=== PATIENT | female | born 1930 | race Caucasian/White ===

== ENCOUNTER 2017-02-22 18:34 | Emergency (ER) | payer MEDICARE, BC ==
[2017-02-22] MEDS ORDERED: Insulin Regular, Human 100 Units/ML 3 ML Vial SUBCUT STA (19:36)
[2017-02-22] MEDS ORDERED: Sodium Chloride 0.9% 1,000 ML IV ONE ×2 (19:37→21:08)
--- NOTE | 2017-02-22 19:41 | EDM.PDOC ---
ED HPI GENERAL MEDICAL PROBLEM - General Chief Complaint: Back Pain or Injury Stated Complaint: BACK PAINS Time Seen by Provider: 02/22/17 19:08 Source of Information: Reports: Family (Son & daughter), RN Notes Reviewed History Limitations: Reports: Altered Mental Status - History of Present Illness INITIAL COMMENTS - FREE TEXT/NARRATIVE: The patient resides alone in a house on the property of her son. He states that he visits her every night to instill her glaucoma eyedrops. Last night (2016) everything was normal, however, when he came by [facility], he found the patient sitting in her kitchen chair. He believes that she had been sitting there all day. She had urinated on herself. She was awake, but minimally responsive. He found to chocolate muffins on the table that he believes she had been chewing on. The patient has chronic low back pain, and it was the son's impression that her pain had prevented her from getting up all day. The patient' s son and daughter brought her to the ED. Upon arrival to the ED, an Accu-Chek was checked, reading >400. The patient is awake, but minimally responsive, and when asked a question, responds with nonsensical wording. No prior similar symptoms. No recent illnesses. - Related Data Allergies Allergy/AdvReac Type Severity Reaction Status Date / Time gatifloxacin [From Tequin] Allergy Cannot Verified 02/22/17 18:40 Remember ketorolac Allergy Cannot Verified 02/22/17 18:40 Remember Penicillins Allergy Cannot Verified 02/22/17 18:40 Remember Home Meds: Home Meds Ascorbate Calcium [Vitamin C] 1 tab PO DAILY 02/22/17 [History] Bimatoprost [Lumigan 0.03% Ophth Soln] 1 drop EYEBOTH BEDTIME 02/22/17 [History] Calcium Carbonate/Vitamin D3 [Calcium 600 + Vit D 400 Softgl] 1 tab PO DAILY [History] Cholecalciferol (Vitamin D3) [Vitamin D3] 1 tab PO DAILY 02/22/17 [History] Ferrous Sulfate [Iron] 1 tab PO DAILY 02/22/17 [History] Hydrochlorothiazide 1 tab PO DAILY 02/22/17 [History] Levothyroxine 1 tab PO DAILY 02/22/17 [History] Linagliptin [Tradjenta] 1 tab PO DAILY 02/22/17 [History] Losartan [Cozaar] 1 tab PO DAILY 02/22/17 [History] Metoprolol Tartrate 1 tab PO BID 02/22/17 [History] Multivit,Calc,Mins/Iron/Folic [Therapeutic-M Tablet] 1 tab PO DAILY 02/22/17 [ History] [place]-3/DHA/Epa/Fish Oil [[place] 3 500 Softgel] 1 tab PO DAILY 02/22/17 [History] Omeprazole 1 tab PO BID 02/22/17 [History] Simvastatin [Zocor] 1 tab PO BEDTIME 02/22/17 [History] Vit A,C & E/Lutein/Minerals [Healthy Eyes] 1 tab PO DAILY 02/22/17 [History] Vitamin E 1 tab PO DAILY 02/22/17 [History] metFORMIN [Glucophage XR] 1 tab PO BID 02/22/17 [History] Past Medical History HEENT History: Reports: Glaucoma Cardiovascular History: Reports: High Cholesterol, Hypertension Gastrointestinal History: Reports: GERD, PUD Genitourinary History: Reports: Renal Calculus, Urinary Incontinence Musculoskeletal History: Reports: Back Pain, Chronic, Osteoarthritis, Osteoporosis Endocrine/Metabolic History: Reports: Diabetes, Type II, Hypothyroidism - Past Surgical History HEENT Surgical History: Reports: Cataract Surgery GI Surgical History: Reports: Other (See Below) (Unknown abdominal surgery, based on well-healed long transverse upper abdominal scar) Neurological Surgical History: Reports: Lumbar Spine (fusion) Musculoskeletal Surgical History: Reports: Hip Replacement (bilateral) Social & Family History - Tobacco Use Smoking Status *Q: Never Smoker - Alcohol Use Alcohol Use History: Yes Alcohol Use Frequency: Daily (1 drink nightly) - Recreational Drug Use Recreational Drug Use: No - Living Situation & Occupation Living situation: Reports: , Alone (on son's property) Occupation: Retired ED ROS GENERAL - Review of Systems Review Of Systems: See Below Constitutional: Reports: No Symptoms HEENT: Reports: No Symptoms Respiratory: Reports: No Symptoms Cardiovascular: Reports: No Symptoms Endocrine: Reports: No Symptoms GI/Abdominal: Reports: No Symptoms : Reports: No Symptoms Musculoskeletal: Reports: No Symptoms Skin: Reports: No Symptoms Neurological: Reports: No Symptoms Psychiatric: Reports: No Symptoms Hematologic/Lymphatic: Reports: No Symptoms Immunologic: Reports: No Symptoms ED EXAM GENERAL NO PERIP PULSE - Physical Exam Exam: See Below Exam Limited By: Other (The patient does not follow commands) General Appearance: Alert, WD/WN, No Apparent Distress Eye Exam: Bilateral Eye: Normal Inspection Ears: Normal External Exam, Hearing Grossly Normal Nose: Normal Inspection, No Blood Throat/Mouth: Normal Inspection, Normal Lips, Normal Voice, No Airway Compromise , Other (Dry oral mucosa) Head: Atraumatic, Normocephalic Neck: Normal Inspection, Full Range of Motion Respiratory/Chest: No Respiratory Distress, Lungs Clear, Normal Breath Sounds, No Accessory Muscle Use Cardiovascular: Normal Peripheral Pulses, Regular Rate, Rhythm, No Gallop, No JVD, No Murmur, No Rub GI/Abdominal: Normal Bowel Sounds, Soft, No Organomegaly, No Distention, No Abnormal Bruit, No Mass, Tender (The patient moans with palpation of her entire abdomen), Other (Long, well-healed transverse upper abdominal scar) (Female) Exam: Deferred Rectal (Female) Exam: Deferred Extremities: Normal Inspection, Normal Range of Motion, No Pedal Edema, Normal Capillary Refill Neurological: Other (Awake but somewhat somnolent, staring off. Moves all 4 extremities spontaneously. Verbal answers to questions are nonsensical.) Psychiatric: Other (Unable to assess) Skin Exam: Warm, Dry, Intact, Normal Color, No Rash EKG INTERPRETATION EKG Date: 02/22/17 Time: 19:58 Rhythm: Other (Sinus tachycardia) Rate (Beats/Min): 106 Course - Vital Signs Last Recorded V/S: Last Vital Signs Temp 36.8 C 02/22/17 18:46 Pulse 108 H 02/22/17 18:46 Resp 36 H 02/22/17 18:46 BP 126/62 02/22/17 18:46 Pulse Ox 95 02/22/17 18:46 - Orders/Labs/Meds Orders: Active Orders 24 hr Category Date Time Status Accu Check [Blood Glucose Check, Bedside] [RC] ONETIME Care 02/22/17 19:33 Active EKG Documentation Completion [RC] STAT Care 02/22/17 19:33 Active RT Ventilator Weaning [RC] .As Directed Care 02/22/17 22:03 Active Chest 1V Frontal [CR] Stat Exams 02/22/17 19:32 Taken OR PCXR-No Charge-PICC/Central [CR] Stat Exams 02/22/17 21:18 Ordered Insulin Regular, Human [HumuLIN R] 100 unit Med 02/22/17 19:45 Active Sodium Chloride 0.9% [Normal Saline] 99 ml IV TITRATE Medication Orders Insulin Human Regular 100 unit (/ Sodium Chloride) 100 mls @ 6 mls/hr IV TITRATE EVELYN; 6 UNITS/HR PRN Reason: Protocol Last Titration: 02/22/17 21:11 Dose: 6 units/hr, 6 mls/hr Admin: 02/22/17 20:01 Dose: 6 units/hr, 6 mls/hr Labs: Laboratory Tests 02/22/17 02/22/17 02/22/17 Range/Units 18:50 18:50 18:50 WBC 16.43 H (3.98-10.04) K/mm3 RBC 4.02 (3.98-5.22) M/mm3 Hgb 12.4 (11.2-15.7) gm/L Hct 39.7 (34.1-44.9) % MCV 98.8 H (79.4-94.8) fl MCH 30.8 (25.6-32.2) pg MCHC 31.2 L (32.2-35.5) g/dl RDW Std Deviation 48.9 H (36.4-46.3) fL Plt Count 465 H (182-369) K/mm3 MPV 10.2 (9.4-12.3) fl Neut % (Auto) Cancelled Lymph % (Auto) Cancelled [place] % (Auto) Cancelled Eos % (Auto) Cancelled Baso % (Auto) Cancelled Neut # (Auto) Cancelled Lymph # (Auto) Cancelled [place] # (Auto) Cancelled Eos # (Auto) Cancelled Baso # (Auto) Cancelled Neutrophils % (Manual) 93 H (40-60) % Band Neutrophils % 0 (0-10) % Lymphocytes % (Manual) 5 L (20-40) % Atypical Lymphs % 0 % Monocytes % (Manual) 2 (2-10) % Eosinophils % (Manual) 0 L (0.7-5.8) % Basophils % (Manual) 0 L (0.1-1.2) Manual Slide Review Cancelled Platelet Estimate Increased RBC Morph Comment Normal PT (8.0-13.0) SECONDS INR APTT (22-36) SECONDS Puncture Site ABG pH (7.35-7.45) ABG pCO2 (35.0-45.0) mmHg ABG pO2 (80.0-100.0) mmHg ABG HCO3 (22.0-26.0) meq/L ABG O2 Saturation (96.0-97.0) % ABG Base Excess (-2-2.0) A-a Gradient mmHg O2 Delivery Device FiO2 (21.00-100.00) % Sodium 129 L (136-145) mEq/L Potassium 6.6 H* (3.5-5.1) mEq/L Chloride 93 L (98-107) mEq/L Carbon Dioxide 24 (21-32) mEq/L Anion Gap 18.6 H (5-15) BUN 45 H (7-18) mg/dL Creatinine 2.7 H (0.55-1.02) mg/dL Est Cr Clr Drug Dosing 13.46 mL/min Estimated GFR (MDRD) 17 (>60) mL/min BUN/Creatinine Ratio 16.7 (14-18) Glucose 1020 H* (83-115) mg/dL Lactic Acid (0.4-2.0) mmol/L Calcium 9.3 (8.5-10.1) mg/dL Magnesium (1.8-2.4) mg/dl Total Bilirubin 1.1 H (0.2-1.0) mg/dL GGT (5-55) U/L AST 201 H (15-37) U/L ALT 210 H (14-59) U/L Alkaline Phosphatase 587 H (46-116) U/L Creatine Kinase (26-192) U/L Troponin I 0.159 H* (0.00-0.056) ng/mL Total Protein 7.8 (6.4-8.2) g/dl Albumin 3.3 L (3.4-5.0) g/dl Globulin 4.5 gm/dL Albumin/Globulin Ratio 0.7 L (1-2) Lipase (73-393) U/L Urine Color Yellow (Yellow) Urine Appearance Slt cloudy H (Clear) Urine pH 6.0 (5.0-8.0) Ur Specific [place] 1.010 (1.005-1.030) Urine Protein Trace H (Negative) Urine Glucose (UA) 2+ H (Negative) Urine Ketones Negative (Negative) Urine Occult Blood Negative (Negative) Urine Nitrite Negative (Negative) Urine Bilirubin Negative (Negative) Urine Urobilinogen 0.2 (0.2-1.0) Ur Leukocyte Esterase Negative (Negative) Urine RBC 0-5 (0-5) /hpf Urine WBC 0-5 (0-5) /hpf Ur Epithelial Cells 0-5 (0-5) /hpf Amorphous Sediment Few H (NOT SEEN) /hpf Urine Bacteria Few (FEW) /hpf Urine Mucus Few (FEW) /hpf 02/22/17 02/22/17 02/22/17 Range/Units 18:50 18:50 18:50 WBC (3.98-10.04) K/mm3 RBC (3.98-5.22) M/mm3 Hgb (11.2-15.7) gm/L Hct (34.1-44.9) % MCV (79.4-94.8) fl MCH (25.6-32.2) pg MCHC (32.2-35.5) g/dl RDW Std Deviation (36.4-46.3) fL Plt Count (182-369) K/mm3 MPV (9.4-12.3) fl Neut % (Auto) Lymph % (Auto) [place] % (Auto) Eos % (Auto) Baso % (Auto) Neut # (Auto) Lymph # (Auto) [place] # (Auto) Eos # (Auto) Baso # (Auto) Neutrophils % (Manual) (40-60) % Band Neutrophils % (0-10) % Lymphocytes % (Manual) (20-40) % Atypical Lymphs % % Monocytes % (Manual) (2-10) % Eosinophils % (Manual) (0.7-5.8) % Basophils % (Manual) (0.1-1.2) Manual Slide Review Platelet Estimate RBC Morph Comment PT 11.8 (8.0-13.0) SECONDS INR 1.08 APTT 25 (22-36) SECONDS Puncture Site ABG pH (7.35-7.45) ABG pCO2 (35.0-45.0) mmHg ABG pO2 (80.0-100.0) mmHg ABG HCO3 (22.0-26.0) meq/L ABG O2 Saturation (96.0-97.0) % ABG Base Excess (-2-2.0) A-a Gradient mmHg O2 Delivery Device FiO2 (21.00-100.00) % Sodium (136-145) mEq/L Potassium (3.5-5.1) mEq/L Chloride (98-107) mEq/L Carbon Dioxide (21-32) mEq/L Anion Gap (5-15) BUN (7-18) mg/dL Creatinine (0.55-1.02) mg/dL Est Cr Clr Drug Dosing mL/min Estimated GFR (MDRD) (>60) mL/min BUN/Creatinine Ratio (14-18) Glucose (83-115) mg/dL Lactic Acid (0.4-2.0) mmol/L Calcium (8.5-10.1) mg/dL Magnesium 2.5 H (1.8-2.4) mg/dl Total Bilirubin (0.2-1.0) mg/dL GGT 1875 H (5-55) U/L AST (15-37) U/L ALT (14-59) U/L Alkaline Phosphatase (46-116) U/L Creatine Kinase 69 (26-192) U/L Troponin I (0.00-0.056) ng/mL Total Protein (6.4-8.2) g/dl Albumin (3.4-5.0) g/dl Globulin gm/dL Albumin/Globulin Ratio (1-2) Lipase 386 (73-393) U/L Urine Color (Yellow) Urine Appearance (Clear) Urine pH (5.0-8.0) Ur Specific [place] (1.005-1.030) Urine Protein (Negative) Urine Glucose (UA) (Negative) Urine Ketones (Negative) Urine Occult Blood (Negative) Urine Nitrite (Negative) Urine Bilirubin (Negative) Urine Urobilinogen (0.2-1.0) Ur Leukocyte Esterase (Negative) Urine RBC (0-5) /hpf Urine WBC (0-5) /hpf Ur Epithelial Cells (0-5) /hpf Amorphous Sediment (NOT SEEN) /hpf Urine Bacteria (FEW) /hpf Urine Mucus (FEW) /hpf 02/22/17 02/22/17 Range/Units 19:50 20:45 WBC (3.98-10.04) K/mm3 RBC (3.98-5.22) M/mm3 Hgb (11.2-15.7) gm/L Hct (34.1-44.9) % MCV (79.4-94.8) fl MCH (25.6-32.2) pg MCHC (32.2-35.5) g/dl RDW Std Deviation (36.4-46.3) fL Plt Count (182-369) K/mm3 MPV (9.4-12.3) fl Neut % (Auto) Lymph % (Auto) [place] % (Auto) Eos % (Auto) Baso % (Auto) Neut # (Auto) Lymph # (Auto) [place] # (Auto) Eos # (Auto) Baso # (Auto) Neutrophils % (Manual) (40-60) % Band Neutrophils % (0-10) % Lymphocytes % (Manual) (20-40) % Atypical Lymphs % % Monocytes % (Manual) (2-10) % Eosinophils % (Manual) (0.7-5.8) % Basophils % (Manual) (0.1-1.2) Manual Slide Review Platelet Estimate RBC Morph Comment PT (8.0-13.0) SECONDS INR APTT (22-36) SECONDS Puncture Site Lt radial ABG pH 7.45 (7.35-7.45) ABG pCO2 34.1 L (35.0-45.0) mmHg ABG pO2 77.0 L (80.0-100.0) mmHg ABG HCO3 23.3 (22.0-26.0) meq/L ABG O2 Saturation 95.0 L (96.0-97.0) % ABG Base Excess 0.1 (-2-2.0) A-a Gradient 15 mmHg O2 Delivery Device Room air FiO2 0.00 L (21.00-100.00) % Sodium (136-145) mEq/L Potassium (3.5-5.1) mEq/L Chloride (98-107) mEq/L Carbon Dioxide (21-32) mEq/L Anion Gap (5-15) BUN (7-18) mg/dL Creatinine (0.55-1.02) mg/dL Est Cr Clr Drug Dosing mL/min Estimated GFR (MDRD) (>60) mL/min BUN/Creatinine Ratio (14-18) Glucose (83-115) mg/dL Lactic Acid 3.0 H (0.4-2.0) mmol/L Calcium (8.5-10.1) mg/dL Magnesium (1.8-2.4) mg/dl Total Bilirubin (0.2-1.0) mg/dL GGT (5-55) U/L AST (15-37) U/L ALT (14-59) U/L Alkaline Phosphatase (46-116) U/L Creatine Kinase (26-192) U/L Troponin I (0.00-0.056) ng/mL Total Protein (6.4-8.2) g/dl Albumin (3.4-5.0) g/dl Globulin gm/dL Albumin/Globulin Ratio (1-2) Lipase (73-393) U/L Urine Color (Yellow) Urine Appearance (Clear) Urine pH (5.0-8.0) Ur Specific [place] (1.005-1.030) Urine Protein (Negative) Urine Glucose (UA) (Negative) Urine Ketones (Negative) Urine Occult Blood (Negative) Urine Nitrite (Negative) Urine Bilirubin (Negative) Urine Urobilinogen (0.2-1.0) Ur Leukocyte Esterase (Negative) Urine RBC (0-5) /hpf Urine WBC (0-5) /hpf Ur Epithelial Cells (0-5) /hpf Amorphous Sediment (NOT SEEN) /hpf Urine Bacteria (FEW) /hpf Urine Mucus (FEW) /hpf Meds: Medications Generic Name Dose Route Start Last Admin Trade Name Freq PRN Reason Stop Dose Admin Insulin Human Regular 100 unit 100 mls @ 6 mls/hr 02/22/17 19:45 02/22/17 21: 11 / Sodium Chloride IV 6 units/hr TITRATE EVELYN 6 mls/hr Protocol Titration 6 UNITS/HR Discontinued Medications Generic Name Dose Route Start Last Admin Trade Name Freq PRN Reason Stop Dose Admin Sodium Chloride 1,000 mls @ 999 mls/hr 02/22/17 19:37 02/22/17 19:55 Normal Saline IV 02/22/17 20:37 999 mls/hr ONETIME ONE Administration Sodium Chloride 1,000 mls @ 999 mls/hr 02/22/17 21:08 02/22/17 21:26 Normal Saline IV 02/22/17 22:08 999 mls/hr ONETIME ONE Administration Levetiracetam 1,000 mg/ Sodium 110 mls @ 400 mls/hr 02/22/17 21:08 02/22/17 21:35 Chloride IV 02/22/17 21:24 400 mls/hr ONETIME STA Administration Sodium Chloride Confirm 02/22/17 21:10 Normal Saline Administered 02/22/17 21:11 Dose 1,000 mls @ as directed .ROUTE .STK-MED ONE Insulin Human Regular 10 unit 02/22/17 19:36 02/22/17 19:57 Humulin R SUBCUT 02/22/17 19:37 10 units ONETIME STA Administration Protocol - Re-Assessments/Exams Free Text/Narrative Re-Assessment/Exam: 02/22/17 19:38 The patient's Accu-Chek upon presentation to the ED is >400. Notified by lab that the blood glucose is not yet know, but likely >1000. This indicates hyperglycemic hyperosmolar state. I have ordered 10 units regular insulin, and insulin drip at 6 units per hour, and normal saline at 1 L per hour. I have added additional labs to those initially ordered. The patient's WBC count is elevated at 16.43. A workup for an infection is underway. Her BUN/Cr is significantly elevated at 45/2.7. Her troponin is elevated at 0.159, likely due to her impaired renal function, however, this will be followed. Her LFTs are elevated - etiology is unclear, but acute cholecystitis or cholangitis are on the differential. 02/22/17 20:31 CT of the head without contrast is read by Dr. Garcia as: 1. Large parenchymal hemorrhage within the right temporal region with surrounding edema. Smaller parenchymal hemorrhage within the left parietal convexity. Uncertain if these represent hemorrhagic metastasis given their multiplicity or represent primary intraparenchymal hemorrhage. 2. Slight midline shift is seen. 3. Other incidental findings. Portable chest radiograph appears to be grossly unremarkable. Cardiac silhouette is within normal limits. No pulmonary vascular congestion. No pleural effusions. No focal infiltrate. No pneumothorax. Lumbar fusion hardware noted. Formal read per the Radiologist pending. 02/22/17 20:57 The ABG represents a combined respiratory alkalosis and metabolic acidosis. 02/22/17 21:[address] Santos, Neurosurgeon at [facility] at 20:49. He would like us to load the patient with Keppra 1g and keep the head of the bed at 30. He would like us to check on the patient's CODE STATUS. Case then discussed with Dr. Cárdenas, education program manager at [facility] at 20: 56. He accepts the patient for transfer to their [facility]. 02/22/17 21:48 The patient does not have a formal living will or DURABLE POWER OF BIOLOGY TEACHER for healthcare, however, the patient's son and daughter would like the patient to be full code. While the patient is currently awake, she will need to be intubated for airway protection, as she is at risk for increased cranial pressure, possible herniation, and subsequent respiratory failure. Following sedation with etomidate 20 mg and rocuronium 65 mg, the patient was endotracheally intubated with an 8.0 ETT. The patient's head of the bed was kept at 30 the entire time. 02/22/17 21:53 Post-intubation portal chest radiograph appears to demonstrate the tip of the ET tube approximately 3 cm above the olga. The OG tube tip is in the stomach via the esophagus. Formal read per the Radiologist pending. 02/22/17 22:10 Flight will sedate with a Versed drip. Departure - Departure Time of Disposition: 21:51 Disposition: DC/Tfer to Acute Hospital 02 Condition: Serious Clinical Impression: Intracranial hemorrhage, Uncontrolled type 2 DM with hyperosmolar nonketotic hyperglycemia, Acute renal failure, Leukocytosis, Elevated troponin, Lactic acidosis, Elevated LFTs - Discharge Information Referrals: Ama Gatica, CUSTOMER COMPLAINT CLERK [Primary Care Provider] - - My Orders Last 24 Hours: My Active Orders 02/22/17 19:32 Chest 1V Frontal [CR] Stat 02/22/17 19:33 Accu Check [Blood Glucose Check, Bedside] [RC] ONETIME EKG Documentation Completion [RC] STAT 02/22/17 19:45 Insulin Regular, Human [HumuLIN R] 100 unit Sodium Chloride 0.9% [Normal Saline] 99 ml IV TITRATE 02/22/17 21:18 OR PCXR-No Charge-PICC/Central [CR] Stat 02/22/17 22:03 RT Ventilator Weaning [RC] .As Directed - Assessment/Plan Last 24 Hours: My Active Orders 02/22/17 19:32 Chest 1V Frontal [CR] Stat 02/22/17 19:33 Accu Check [Blood Glucose Check, Bedside] [] ONETIME EKG Documentation Completion [] STAT 02/22/17 19:45 Insulin Regular, Human [HumuLIN R] 100 unit Sodium Chloride 0.9% [Normal Saline] 99 ml IV TITRATE 02/22/17 21:18 OR PCXR-No Charge-PICC/Central [CR] Stat 02/22/17 22:03 RT Ventilator Weaning [] .As Directed ED ET INTUBATION - Endotracheal Intubation Time of Intubation: 21:42 ET Intubation Indication: Airway Protection Preparation: Suction, Balloon Tested, BVM Set Up, Difficult Airway Equip Pre-oxygenation: assisted with BVM, 100% FiO2, spontaneous breathing Pre-treatment: defasciculation drug (Rocuronium) Paralysis: etomidate (amidate) Placement: Orotracheal, Cuffed, Uncomplicated Placement ETT Size In mm: 8.0 Number of Attempts: 1 Post intubation tube placement confirmed by: CO2 change, tube fog, chest rise, bilateral breath sounds, CXR Tube Secured By: By RT (24 cm at the incisors)
--- NOTE | 2017-02-22 20:32 | CT ---
Head CT Technique: Multiple axial sections through the brain were obtained. Intravenous contrast was not utilized. Comparison: Previous intracranial imaging. Findings: Acute parenchymal hemorrhage is noted within the right temporal lobe. This measures approximately 4.7 x 3.0 cm. There is edema being seen posterior to this hemorrhage extending into the temporal and slight parietal region. Ventricles along with basal cisterns and sulci over the convexities are mildly prominent. Minimal midline shift is seen. Small amount of blood seen within the ventricular system compatible with rupture into the right temporal horn. Second small parenchymal hemorrhage is noted within the left parietal convexity measuring approximately 1.4 cm. No acute calvarial abnormality is seen. Enlargement of the sella turcica is seen compatible with change from so-called empty sella which is a normal variant. Impression: 1. Large parenchymal hemorrhage within the right temporal region with surrounding edema. Smaller parenchymal hemorrhage within the left parietal convexity. Uncertain if these represent hemorrhagic metastasis given their multiplicity or represent primary intraparenchymal hemorrhage. 2. Slight midline shift is seen. 3. Other incidental findings. Diagnostic code #5
[2017-02-22] MEDS ORDERED: levETIRAcetam 1,000 MG in Sodium Chloride 0.9% 100 ML IV STA (21:08)
[2017-02-22] MEDS ORDERED: Sodium Chloride 0.9% 1,000 ML ONE (21:10)
[2017-02-22] MEDS ORDERED: Rocuronium 50 MG/5 ML Vial ONE (21:40)
[2017-02-22] MEDS ORDERED: Etomidate 2 MG/ML 20 ML SDV IVPUSH ONE ×2 (21:40→22:22)
[2017-02-23 00:39] VITALS: BP 133/69
--- NOTE | 2017-02-23 06:45 | CR ---
Chest: Portable view of the chest was obtained. Comparison: No previous chest x-ray. Heart size is normal. Upper mediastinum within normal limits for the patient's age. Lungs are clear with no acute infiltrates. Previous lumbar spine surgery is noted. Bony structures are osteopenic. Impression: 1. Incidental findings. Nothing acute is appreciated on portable chest x-ray. Diagnostic code #2
--- NOTE | 2017-02-23 08:31 | CR ---
Chest: Portable view of the chest was obtained. Comparison: Previous chest x-ray of 02/22/17. Endotracheal tube is seen. Tip of the ET tube lies slightly below the inferior levels of the clavicle above the olga in satisfactory position. Nasogastric tube courses through the mediastinum into the stomach. Heart size is normal. Tortuous thoracic aorta is seen. No acute infiltrates are seen within the lungs. Impression: 1. Satisfactory position of endotracheal tube and nasogastric tube. 2. Nothing acute is identified on frontal chest x-ray. Diagnostic code #3
== END 2017-02-22 22:10 ==
LOC: JD.ED 18:34
DX: I62.9 Nontraumatic intracranial hemorrhage, unspecified (principal); E11.65 Type 2 diabetes mellitus with hyperglycemia; E11.00 Type 2 diabetes mellitus with hyperosmolarity without nonketotic hyperglycemic-hyperosmolar coma (NKHHC); N17.9 Acute kidney failure, unspecified; D72.829 Elevated white blood cell count, unspecified; E87.2 Acidosis; E78.00 Pure hypercholesterolemia, unspecified; I10 Essential (primary) hypertension; K21.9 Gastro-esophageal reflux disease without esophagitis; Z88.0 Allergy status to penicillin; Z88.6 Allergy status to analgesic agent; Z88.8 Allergy status to other drugs, medicaments and biological substances; Z79.899 Other long term (current) drug therapy; Z79.84 Long term (current) use of oral hypoglycemic drugs; Z87.442 Personal history of urinary calculi; E03.9 Hypothyroidism, unspecified; Z98.49 Cataract extraction status, unspecified eye; Z96.643 Presence of artificial hip joint, bilateral
CPT/HCPCS: 31500; 36415; 36600; 51701; 70450; 71010; 80053; 81001; 82550; 82803; 82977; 83605; 83690; 83735; 84484; 85025; 85610; 85730; 93005; 96361; 96365; 96374; 96375; 96376; 99285; J1817; J1953; J7030; J7040